=== PATIENT | male | born 1955 | race Caucasian/White ===

== ENCOUNTER 2020-10-19 17:46 | Emergency (ER) | payer OTHER ==
[2020-10-19 18:02] VITALS: TEMP 99.2
[2020-10-19] MEDS ORDERED: SODIUM CHLORIDE 0.9% 1,000 ML IV STA (18:28)
--- NOTE | 2020-10-19 19:02 | ED ---
Nausea/Vomiting/Diarrhea HPI - General Chief complaint: Nausea/Vomiting/Diarrhea Stated complaint: diarrhea, weakness Time Seen by Provider: 10/19/20 18:20 Source: patient Mode of arrival: ambulatory Limitations: no limitations - History of Present Illness Initial comments: 64-year-old male presents to the emergency department with a chief complaint of diarrhea. Patient reports symptoms and I will for approximately 3 weeks. States he was on Keflex, amoxicillin and clindamycin for a skin infection. Patient reports soon after began to experience profuse watery diarrhea which is increasing severity. Patient reports he spoke to his primary care physician who prescribed Flagyl for him. States the diarrhea is not significantly foul- smelling. Patient reports 04 he is taken 2 days worth of Flagyl with no significant permanent symptoms. He denies any hematuria, hematochezia or melena. Denies any obstructive or infectious urinary symptoms. Denies any abdominal back pain. Denies any fevers or chills. - Related Data Home Medications Medication Instructions Recorded Confirmed Famotidine 20 mg PO HS 10/19/20 10/19/20 Pravastatin Sodium [Pravachol] 40 mg PO HS 10/19/20 10/19/20 amLODIPine [Norvasc] 10 mg PO DAILY 10/19/20 10/19/20 lisinopriL 40 mg PO DAILY 10/19/20 10/19/20 metroNIDAZOLE [Flagyl] 500 mg PO TID 10/19/20 10/19/20 Previous Rx's Medication Instructions Recorded Erythromycin Base [Erythromycin] 250 mg PO TID #21 tab 10/19/20 Allergies Allergy/AdvReac Type Severity Reaction Status Date / Time No Known Allergies Allergy Verified 10/19/20 18:45 Review of Systems ROS Statement: Those systems with pertinent positive or pertinent negative responses have been documented in the HPI. ROS Other: All systems not noted in ROS Statement are negative. Past Medical History Past Medical History: Hyperlipidemia, Hypertension History of Any Multi-Drug Resistant Organisms: None Reported Past Surgical History: Hernia Repair, Orthopedic Surgery, Prostate Surgery Additional Past Surgical History / Comment(s): knee surgery Smoking Status: Former smoker Past Alcohol Use History: Occasional Past Drug Use History: None Reported General Exam Limitations: no limitations General appearance: alert, in no apparent distress Head exam: Present: atraumatic, normocephalic, normal inspection Eye exam: Present: normal appearance, PERRL, EOMI Pupils: Present: normal accommodation ENT exam: Present: normal exam, normal oropharynx, mucous membranes moist Neck exam: Present: normal inspection, full ROM. Absent: tenderness, lymphadenopathy Respiratory exam: Present: normal lung sounds bilaterally. Absent: respiratory distress Cardiovascular Exam: Present: regular rate, normal rhythm, normal heart sounds. Absent: systolic murmur GI/Abdominal exam: Present: soft. Absent: distended, tenderness, guarding Extremities exam: Present: normal inspection, full ROM, normal capillary refill. Absent: tenderness, pedal edema Back exam: Present: normal inspection, full ROM. Absent: tenderness, CVA tenderness (R), CVA tenderness (L) Neurological exam: Present: alert, oriented X3 Psychiatric exam: Present: normal affect, normal mood Skin exam: Present: warm, dry, intact, normal color Course Vital Signs 10/19/20 10/19/20 17:55 22:00 Temperature 99.2 F Pulse Rate 89 80 Respiratory 19 18 Rate Blood Pressure 144/71 142/66 O2 Sat by Pulse 98 98 Oximetry Medical Decision Making - Medical Decision Making 64-year-old male presents to the emergency department with a chief complaint of diarrhea. On physical examination, no abdominal tenderness or CVA tenderness. Laboratory work revealed leukocytosis. CMP UA unremarkable. Negative for C. diff. CT abdomen and pelvis reveals colitis versus diverticulitis. I discussed the case with Dr. Stewart recommended stopping the Flagyl and starting the patient on erythromycin. I did offer admission for the patient, he declined. He will follow with Dr. Hui who has previously seen before. Return parameters were thoroughly discussed the patient is understanding and agreeable. - Lab Data Result diagrams: 10/19/20 19:40 10/19/20 19:40 Lab Results 10/19/20 10/19/20 10/19/20 Range/Units 19:24 19:40 19:40 WBC 16.1 H (3.8-10.6) k/uL RBC 5.07 (4.30-5.90) m/uL Hgb 15.8 (13.0-17.5) gm/dL Hct 45.4 (39.0-53.0) % MCV 89.5 (80.0-100.0) fL MCH 31.1 (25.0-35.0) pg MCHC 34.7 (31.0-37.0) g/dL RDW 12.7 (11.5-15.5) % Plt Count 352 (150-450) k/uL MPV 7.1 Neutrophils % 86 % Lymphocytes % 7 % Monocytes % 5 % Eosinophils % 1 % Basophils % 0 % Neutrophils # 13.8 H (1.3-7.7) k/uL Lymphocytes # 1.2 (1.0-4.8) k/uL Monocytes # 0.8 (0-1.0) k/uL Eosinophils # 0.2 (0-0.7) k/uL Basophils # 0.1 (0-0.2) k/uL Sodium (137-145) mmol/L Potassium (3.5-5.1) mmol/L Chloride (98-107) mmol/L Carbon Dioxide (22-30) mmol/L Anion Gap mmol/L BUN (9-20) mg/dL Creatinine (0.66-1.25) mg/dL Est GFR (CKD-EPI)AfAm (>60 ml/min/1.73 sqM) Est GFR (CKD-EPI)NonAf (>60 ml/min/1.73 sqM) Glucose (74-99) mg/dL Plasma Lactic Acid [place] (0.7-2.0) mmol/L Calcium (8.4-10.2) mg/dL Total Bilirubin (0.2-1.3) mg/dL AST (17-59) U/L ALT (4-49) U/L Alkaline Phosphatase (38-126) U/L Total Protein (6.3-8.2) g/dL Albumin (3.5-5.0) g/dL Lipase (23-300) U/L Urine Color Yellow Urine Appearance Clear (Clear) Urine pH 5.5 (5.0-8.0) Ur Specific [place] 1.007 (1.001-1.035) Urine Protein Negative (Negative) Urine Glucose (UA) Negative (Negative) Urine Ketones Negative (Negative) Urine Blood Negative (Negative) Urine Nitrite Negative (Negative) Urine Bilirubin Negative (Negative) Urine Urobilinogen <2.0 (<2.0) mg/dL Ur Leukocyte Esterase Trace H (Negative) Urine WBC 1 (0-5) /hpf Urine Mucus Rare H (None) /hpf C. difficile (EIA) Intrp Negative (Negative) 10/19/20 10/19/20 Range/Units 19:40 19:40 WBC (3.8-10.6) k/uL RBC (4.30-5.90) m/uL Hgb (13.0-17.5) gm/dL Hct (39.0-53.0) % MCV (80.0-100.0) fL MCH (25.0-35.0) pg MCHC (31.0-37.0) g/dL RDW (11.5-15.5) % Plt Count (150-450) k/uL MPV Neutrophils % % Lymphocytes % % Monocytes % % Eosinophils % % Basophils % % Neutrophils # (1.3-7.7) k/uL Lymphocytes # (1.0-4.8) k/uL Monocytes # (0-1.0) k/uL Eosinophils # (0-0.7) k/uL Basophils # (0-0.2) k/uL Sodium 136 L (137-145) mmol/L Potassium 4.7 (3.5-5.1) mmol/L Chloride 101 (98-107) mmol/L Carbon Dioxide 26 (22-30) mmol/L Anion Gap 9 mmol/L BUN 15 (9-20) mg/dL Creatinine 1.06 (0.66-1.25) mg/dL Est GFR (CKD-EPI)AfAm 87 (>60 ml/min/1.73 sqM) Est GFR (CKD-EPI)NonAf 75 (>60 ml/min/1.73 sqM) Glucose 110 H (74-99) mg/dL Plasma Lactic Acid [place] 1.0 (0.7-2.0) mmol/L Calcium 8.9 (8.4-10.2) mg/dL Total Bilirubin 0.5 (0.2-1.3) mg/dL AST 19 (17-59) U/L ALT 11 (4-49) U/L Alkaline Phosphatase 76 (38-126) U/L Total Protein 6.1 L (6.3-8.2) g/dL Albumin 3.5 (3.5-5.0) g/dL Lipase 78 (23-300) U/L Urine Color Urine Appearance (Clear) Urine pH (5.0-8.0) Ur Specific [place] (1.001-1.035) Urine Protein (Negative) Urine Glucose (UA) (Negative) Urine Ketones (Negative) Urine Blood (Negative) Urine Nitrite (Negative) Urine Bilirubin (Negative) Urine Urobilinogen (<2.0) mg/dL Ur Leukocyte Esterase (Negative) Urine WBC (0-5) /hpf Urine Mucus (None) /hpf C. difficile (EIA) Intrp (Negative) Disposition Clinical Impression: Diarrhea Disposition: HOME SELF-CARE Condition: Stable Instructions (If sedation given, give patient instructions): Acute Diarrhea (ED) Additional Instructions: Please return to the Emergency Department if symptoms worsen or any other concerns. Prescriptions: Erythromycin Base [Erythromycin] 250 mg PO TID #21 tab Is patient prescribed a controlled substance at d/c from ED?: No Referrals: Benita Seo MD [Primary Care Provider] - 1-2 days Denise Hui MD [STAFF PHYSICIAN] - 1-2 days Time of Disposition: 21:58
[2020-10-19 20:06] LABS: Basophils # (A) 0.1 k/uL (0-0.2); Basophils % (A) 0 %; Eosinophils # (A) 0.2 k/uL (0-0.7); Eosinophils % (A) 1 %; HCT 45.4 % (39.0-53.0); HGB 15.8 gm/dL (13.0-17.5); Lymphocytes # (A) 1.2 k/uL (1.0-4.8); Lymphocytes % (A) 7 %; MCH 31.1 pg (25.0-35.0); MCHC 34.7 g/dL (31.0-37.0); MCV 89.5 fL (80.0-100.0); Mean Platelet Volume 7.1; Monocytes # (A) 0.8 k/uL (0-1.0); Monocytes % (A) 5 %; Neutrophils # (A) 13.8 k/uL (1.3-7.7); Neutrophils % (A) 86 %; Platelet Count 352 k/uL (150-450); RBC 5.07 m/uL (4.30-5.90); RDW 12.7 % (11.5-15.5); WBC 16.1 k/uL (3.8-10.6)
[2020-10-19 20:07] LABS: Albumin 3.5 g/dL (3.5-5.0); Calcium 8.9 mg/dL (8.4-10.2); Potassium 4.7 mmol/L (3.5-5.1); Total Bilirubin 0.5 mg/dL (0.2-1.3); Total Protein 6.1 g/dL (6.3-8.2)
[2020-10-19 20:10] LABS: Appearance,Urine Clear (Clear); Bilirubin,Urine Negative (Negative); Blood,Urine Negative (Negative); Color,Urine Yellow; Glucose,Urine (UA) Negative (Negative); Ketones,Urine Negative (Negative); Leukocyte Esterase,Urine Trace (Negative); Mucus,Urine Rare /hpf; Nitrite,Urine Negative (Negative); PH, Urine 5.5 (5.0-8.0); Protein,Urine Negative (Negative); Specific Gravity,Urine 1.007 (1.001-1.035); Urobilinogen,Urine <2.0 mg/dL (<2.0); WBC,Urine 1 /hpf (0-5)
--- NOTE | 2020-10-19 21:02 | CT ---
EXAMINATION TYPE: CT abdomen pelvis w con DATE OF EXAM: 10/19/2020 COMPARISON: None available. HISTORY: Diarrhea/weakness x3 weeks. CT DLP: 1130.1 mGycm Automated exposure control for dose reduction was used. TECHNIQUE: Helical acquisition of images was performed from the lung bases through the pelvis. CONTRAST: Performed without Oral Contrast and with IV Contrast, patient injected with 100 mL of Isovue 300. FINDINGS: LUNG BASES: No significant abnormality is appreciated. LIVER/GB: No acute abnormality is appreciated. 8mm low attenuating right hepatic focus without suspic ious features and probably cyst. PANCREAS: No significant abnormality is seen. SPLEEN: No significant abnormality is seen. ADRENALS: No significant abnormality is seen. KIDNEYS: No significant abnormality is seen. FREE AIR: No free air is visualized. RETROPERITONEAL ADENOPATHY: None visualized REPRODUCTIVE ORGANS: No significant abnormality is seen URINARY BLADDER: No significant abnormality is seen. PELVIC ADENOPATHY: None visualized. OSSEOUS STRUCTURES: No acute abnormality is seen. BOWEL: Colonic diverticulosis with questionable minimal fat stranding involving the sigmoid and asce nding colon. No bowel obstruction, free air or fluid. OTHER: None IMPRESSION: COLONIC DIVERTICULOSIS WITH MINIMAL INFLAMMATORY CHANGES INVOLVING THE SIGMOID AND ASCENDING COLON. F INDINGS MAY REPRESENT EARLY/LOW GRADE DIVERTICULITIS VERSUS COLITIS. Probable hepatic cyst.
[2020-10-19 22:01] VITALS: BP 142/66; PULSE 80; RESP 18
== END 2020-10-19 22:06 | disposition home or self-care (01) ==
LOC: EC 17:46
DX: R19.7 Diarrhea, unspecified (principal); R53.1 Weakness; I10 Essential (primary) hypertension; E78.5 Hyperlipidemia, unspecified; Z87.891 Personal history of nicotine dependence; Z79.899 Other long term (current) drug therapy
CPT/HCPCS: 36415; 80053; 83605; 83690; 85025; 81001; 87324; 74177; 99285; 96360; Q9967

== ENCOUNTER 2022-08-04 10:28 | Day surgery (SDC) | payer MEDICARE, OTHER ==
[~2022-08-04 10:28] MED LIST: LACTATED RINGERS 1,000 ML IV SCH
[2022-08-04 11:29] VITALS: RESP 16; TEMP 97.6
[2022-08-04] MEDS ORDERED: LIDOCAINE 1% (10MG/ML) FOR IV START INTRADERMA ONE (11:36)
[2022-08-04] MEDS ORDERED: LIDOCAINE 2% INJ 20 MG/ML (2 ML VIAL) ONE (12:35)
[2022-08-04] MEDS ORDERED: PROPOFOL 10 MG/ML 20 ML VIAL IV ONE (12:35)
--- NOTE | 2022-08-04 12:55 | P.PCN ---
Date of Procedure: 08/04/22 Procedure(s) Performed: BRIEF HISTORY: Patient is a 66-year-old pleasant white male scheduled for an elective colonoscopy as a part of evaluation of prior history of colon polyps. Last colonoscopy was 3 years ago. PROCEDURE PERFORMED: Colonoscopy with snare polypectomy and Endo Clip placement. PREOPERATIVE DIAGNOSIS: History of colon polyps. IV sedation per Anesthesia. PROCEDURE: After informed consent was obtained, the patient, was brought into the endoscopy unit. IV sedation was administered by Anesthesia under continuous monitoring. Digital rectal examination was normal. Initially the Olympus CF-160 flexible video colonoscope was then inserted in the rectum, gradually advanced into the cecum without any difficulty. Careful examination was performed as the scope was gradually being withdrawn. Ileocecal valve and the appendiceal orifice were visualized and appeared normal. Prep was excellent. Mucosa of the cecum, ascending colon, transverse colon, descending colon, sigmoid colon, appeared normal. In the rectosigmoid colon at 20 cm from the anal was there was a 3 cm broad-based polyp that was removed by piecemeal snare polypectomy and complete polypectomy was performed. Following this Endo Clip was placed to prevent post- polypectomy bleed. The rectum appeared normal. Retroflexion was performed in the rectum and no lesions were seen. Scattered sigmoid diverticulosis The patient tolerated the procedure well. IMPRESSION: 3 cm broad-based rectal sigmoid polyp at 20 cm from the anal words status post piecemeal snare polypectomy followed by Endo Clip placement Scattered sigmoid diverticulosis. RECOMMENDATIONS: Findings of this examination were discussed with the patient as well as his family.. He was advised to follow with the biopsy results. If the biopsies adenoma he can have a repeat colonoscopy in 3 years.
[2022-08-04 13:19] VITALS: BP 119/76; PULSE 59
== END 2022-08-04 13:42 | disposition home or self-care (01) ==
LOC: ORWHC2ENDO 10:28
PROVIDERS: ATTEND Internal Medicine Gastroenterology
DX: Z12.11 Encounter for screening for malignant neoplasm of colon (principal); D12.7 Benign neoplasm of rectosigmoid junction; K57.30 Diverticulosis of large intestine without perforation or abscess without bleeding; I10 Essential (primary) hypertension; E78.5 Hyperlipidemia, unspecified; Z79.899 Other long term (current) drug therapy; Z86.010 Personal history of colon polyps
CPT/HCPCS: 88305; 45382; 45385; J2704; J2001

== ENCOUNTER → 2024-01-04 | Outpatient (CLI) | payer OTHER ==
[2024-01-04 11:18] LABS: Basophils % (A) 1 %; Eosinophils # (A) 0.2 k/uL (0-0.7); Eosinophils % (A) 3 %; HCT 46.3 % (39.0-53.0); HGB 16.1 gm/dL (13.0-17.5); Lymphocytes # (A) 1.4 k/uL (1.0-4.8); Lymphocytes % (A) 23 %; MCH 31.6 pg (25.0-35.0); MCHC 34.7 g/dL (31.0-37.0); MCV 91.1 fL (80.0-100.0); Mean Platelet Volume 7.5; Monocytes # (A) 0.3 k/uL (0-1.0); Monocytes % (A) 5 %; Neutrophils % (A) 66 %; Platelet Count 201 k/uL (150-450); RBC 5.08 m/uL (4.30-5.90); RDW 13.1 % (11.5-15.5); WBC 6.1 k/uL (3.8-10.6)
[2024-01-04 11:40] LABS: African American GFR (CKD) 74 (>60 ml/min/1.73 sqM); Anion Gap 8 mmol/L; Blood Urea Nitrogen 16 mg/dL (9-20); Calcium 9.5 mg/dL (8.4-10.2); Carbon Dioxide 25 mmol/L (22-30); Chloride 107 mmol/L (98-107); Glucose 93 mg/dL (74-99); Non-African American GFR(CKD) 64 (>60 ml/min/1.73 sqM); Potassium 4.5 mmol/L (3.5-5.1); Sodium 140 mmol/L (137-145)
[2024-01-04 11:50] LABS: Prothrombin Time 10.8 sec (10.0-12.5)
== END | disposition home or self-care (01) ==
LOC: PAT 10:02
PROVIDERS: ATTEND Orthopaedic Surgery
DX: Z01.818 Encounter for other preprocedural examination (principal); Z22.322 Carrier or suspected carrier of Methicillin resistant Staphylococcus aureus; M17.12 Unilateral primary osteoarthritis, left knee
CPT/HCPCS: 80048; 85025; 85610; 87070; 93005

== ENCOUNTER 2024-01-17 08:10 | Day surgery (SDC) | payer OTHER ==
--- NOTE | 2024-01-16 23:21 | HP ---
HISTORY AND PHYSICAL SURGERY DATE: January 17, 2024. HISTORY OF PRESENT ILLNESS: Devang Szymanski, 68-year-old gentleman, seen with symptomatic left knee osteoarthritis. We discussed options regarding treatment. He elected to proceed with left total knee arthroplasty. Consent regarding procedure obtained. PAST MEDICAL HISTORY: Hypertension and hyperlipidemia. SURGICAL HISTORY: Knee arthroscopy. DAILY MEDICATIONS: 1. Lisinopril. 2. Amlodipine. 3. Rosuvastatin. 4. Tylenol. 5. Aspirin. ALLERGIES: None. SOCIAL HISTORY: Denies tobacco use. PHYSICAL EVALUATION OF THE LEFT KNEE: His range of motion is 0 to 120 degrees. He has a mild effusion. Tenderness, medial joint line. Crepitus, medial patellofemoral compartment with some range of motion. Pain with patellofemoral compression. Ligaments stable. Hip rotation is without pain. His distal neurovascular exam is intact. IMAGING STUDIES: Radiographs of the left knee reveal severe osteoarthritic changes. IMPRESSION: 1. Left knee osteoarthritis. 2. Hypertension. 3. Hyperlipidemia. PLAN: Left total knee arthroplasty. MMEDMONDL / IJN: [id number] /
[~2024-01-17 08:10] MED LIST changes: +LIDOCAINE 1% (10MG/ML) FOR IV START INTRADERMA PRN; +TRANEXAMIC 1,000 MG/100ML-NACL 1,000 MG in SALINE 1 100ML.BAG IVPB PRN; +fentaNYL (PF) 50 MCG/ML 2 ML AMP IVP PRN
[2024-01-17] MEDS: ACETAMINOPHEN TAB 500 MG TAB PO PRN (08:51)
[2024-01-17] MEDS: MELOXICAM 7.5 MG TAB PO PRN (08:52)
[2024-01-17] MEDS: DEXAMETHASONE SOD PHOSPHATE 4 MG/ML 1 ML VIAL IV ONE (09:06)
[2024-01-17] MEDS: ONDANSETRON 4 MG/2 ML VIAL IVP ONE (09:06)
[2024-01-17] MEDS: IV FLUID CONTINUATION 1,000 ML IV ONE ×2 (09:07→14:55)
[2024-01-17] MEDS: MIDAZOLAM 2 MG/2 ML VIAL IV PRN (09:35)
[2024-01-17] MEDS ORDERED: MIDAZOLAM 2 MG/2 ML VIAL ONE (10:08)
[2024-01-17] MEDS ORDERED: TRANEXAMIC 1,000 MG/100ML-NACL PREMIX BAG ONE (10:08)
[2024-01-17] MEDS ORDERED: GLYCOPYRROLATE 0.2 MG/ML 2 ML VIAL ONE (10:08)
[2024-01-17] MEDS ORDERED: PROPOFOL 10 MG/ML 20 ML VIAL IV ONE (10:08)
[2024-01-17] MEDS ORDERED: ROPIVACAINE 5 MG/ML 30 ML VIAL ONE (10:08)
[2024-01-17] MEDS ORDERED: DEXAMETHASONE SOD PHOSPHATE 4 MG/ML 1 ML VIAL ONE (10:08)
[2024-01-17] MEDS ORDERED: NEOSTIGMINE 1 MG/ML 10 ML VIAL ONE (10:08)
[2024-01-17] MEDS ORDERED: fentaNYL (PF) 50 MCG/ML 2 ML AMP ONE (10:08)
[2024-01-17] MEDS ORDERED: ROCURONIUM 10 MG/ML (5 ML VIAL) IV ONE (10:08)
[2024-01-17] MEDS ORDERED: SUCCINYLCHOLINE CHLORIDE 200 MG/10 ML VIAL IV ONE (10:08)
[2024-01-17] MEDS ORDERED: LIDOCAINE 1% INJ 10MG/ML (20 ML MDV) ONE (10:08)
[2024-01-17] MEDS ORDERED: KETAMINE HCL IN 0.9 % NACL 50 MG/5 ML SYRINGE ONE (10:08)
[2024-01-17] MEDS ORDERED: HYDROmorphone (PF) 1 MG/ML ONE (10:08)
[2024-01-17] MEDS: ceFAZolin 1,000 MG in SODIUM CHLORIDE 0.9% 1,000 ML IRRIGATION ONE (10:30)
[2024-01-17] MEDS: LACTATED RINGERS 1,000 ML IV ONE (10:43)
[2024-01-17] MEDS ORDERED: ONDANSETRON 4 MG/2 ML VIAL IVP PRN (12:05)
[2024-01-17] MEDS ORDERED: HYDROmorphone 0.5 MG/0.5 ML SYRINGE IVP PRN ×3 (12:05)
[2024-01-17] MEDS ORDERED: NALOXONE 0.4 MG/ML 1 ML VIAL IV PRN (12:05)
[2024-01-17] MEDS ORDERED: HYDROcodone/APAP 5-325MG 1 EACH TAB PO PRN ×2 (12:05)
[2024-01-17] MEDS ORDERED: LACTATED RINGERS 1,000 ML IV ONE (12:05)
--- NOTE | 2024-01-17 12:05 | P.OP ---
Date of Procedure: 01/17/24 Preoperative Diagnosis: Left knee osteoarthritis Postoperative Diagnosis: Left knee osteoarthritis Procedure(s) Performed: Left total knee arthroplasty Implants: 1. DePuy attune size 8 left cruciate retaining cemented femur 2. DePuy attune size 7 fixed-bearing cemented tibial baseplate 3. DePuy attune size 8 fixed-bearing cruciate retaining 5 mm polyethylene tibial insert 4. DePuy attune 38 mm all polyethylene cemented patella Anesthesia: GETA, regional (Interscalene block) Surgeon: Donald Earl Facility Attendant #1: Sameer Corea Estimated Blood Loss (ml): 35 Pathology: none sent Condition: stable Disposition: PACU Indications for Procedure: 68-year-old patient seen with symptomatic left knee osteoarthritis. After having treatment options discussed, he elected to proceed with left total knee arthroplasty. Operative Findings: See description of procedure Description of Procedure: Patient was taken to the operative suite after having an adductor canal catheter placed by the department of anesthesia. Patient underwent a general anesthetic by the department of anesthesia. Patient was given preoperative IV intake antibiotics and TXA. A well-padded tourniquet was placed about the left lower extremity. The lower extremity was then prepped and draped in the normal sterile orthopedic fashion. The extremity was elevated, a tourniquet was insufflated to 300. A standard anterior incision was made sharply through skin. Dissection was taken down through the subcutaneous soft tissues down to the extensor mechanism. A medial arthrotomy was performed, patella was everted and knee was flexed. There was advanced osteoarthritis noted. I introduced my distal intramedullary femoral drill. I then introduced the distal femoral cutting jig. Eloy STEIN secured the cutting jig with 2 pins. I held retractors in position while Eloy STEIN performed the distal femoral resection through the guide area we now removed her distal femoral cutting guid e. We now placed our 4-in-1 femoral cutting block and positioned and it was secured with 2 pins by Eloy STEIN while I held the block in position. The distal femoral finishing was now completed. A proximal tibial cutting guide was positioned. I held the guide in the appropriate position with both hands well Eloy STEIN inserted stabilizing pins into the guide. Proximal tibial cut was made. We now placed a trial femoral component into position, along with an appropriate size tibial tray and insert. We now took the knee through range of motion and had full extension good flexion and good overall soft tissue balance noted. The patella was everted and stabilized with 2 towel clips held by Eloy STEIN while I performed a flush with patellar quad tendon utilizing a fresh sawblade. We templated the patella, appropriate drill holes were made. An appropriate trial patella was positioned, knee was taken through full range of motion with the patella tracking very nicely. The trial patella was removed. Drill holes were made through the femoral component. All trial components were removed after marking off the appropriate rotation of the tibia. Retractors were now positioned along the proximal tibia. An appropriate keel punch was made with the appropriate size tibial guide by myself on Eloy STEIN assisted by holding retractors. At this point appropriate size implants were chosen and opened. The joint was irrigated copiously with pulse lavage mechanical irrigation. The wound was irrigated with pulse lavage mechanical irrigation. We mixed antibiotic methylmethacrylate. We placed the knee into flexion. We placed multiple retractors assisted by Eloy STEIN to expose the proximal tibia. Once the methyl methacrylate was ready, the tibial component was c emented into place removing any excess methylmethacrylate form by both myself and Eloy STEIN. The femoral component was cemented into place removing the removing any excess methylmethacrylate performed by both myself and Eloy STEIN. We then inserted the appropriate size polyethylene tibial insert. We made sure that it was locked into position. We took the knee into full extension, and then back in a flexion making sure we had removed any excess methylmethacrylate. The patellar component was then cemented down and secured with clamp. Excess methylmethacrylate removed. We kept the knee in full extension, patellar clamp in position until methylmethacrylate had hardened. Once it had hardened the patellar clamp was removed. The knee was taken through full range of motion. The patella tracked nicely. There was good soft tissue balancing. The tourniquet was now released. Additional hemostasis was achieved via electrocautery. A second gram of TXA was given. The wound again was irrigated with pulse lavage mechanical irrigation. The extensor mechanism was repaired with Ethibond suture. We checked the repair with range of motion and it was stable. The subcutaneous soft tissues were repaired with Vicryl in layers. The skin was approximated with pernio/Dermabond. Sterile dressings were applied followed by loose web roll and Frank bandage. The patient was transferred to a bed, and taken to recovery in stable and satisfactory condition. Eloy STEIN assisted with this complex procedure.
[2024-01-17 12:23] VITALS: TEMP 97
[2024-01-17] MEDS: HYDROmorphone 0.5 MG/0.5 ML SYRINGE IVP PRN (12:26)
[2024-01-17] MEDS: ROPIVACAINE 1,100 MG, SODIUM CHLORIDE 0.9% 500 ML 330 ML, EMPTY PAIN BALL 1 EACH MISCELLANE PRN (12:37)
--- NOTE | 2024-01-17 12:56 | P.ANPRN ---
Procedure Note - Anesthesia - Nerve Block Performed Left Adductor Canal Infusion Time Out Performed: Yes Date of Procedure: 01/17/24 Procedure Start Time: :35 Procedure Stop Time: :45 Location of Patient: PreOp Indication: Acute Post-Operative Pain, Requested by Surgeon Sedation Type: Sedate with meaningful contact maintained Preparation: Sterile Prep, Sterile Dressing Position: Supine Catheter: Indwelling Needle Types: Pajunk Needle Gauge: 21 Ultrasound used to visualize needle placement: Yes Ultrasound used to observe medication spread: Yes Blood Aspirated: No Pain Paresthesia on Injection Noted: No Resistance on Injection: Normal Image Stored and Saved: Yes Events: Uneventful and Well Tolerated (Ropivacaine 0.5% 20 cc plus dexamethasone 4 mg)
--- NOTE | 2024-01-17 12:57 | P.ANPRN ---
Procedure Note - Anesthesia - Nerve Block Performed Left iPack Single Time Out Performed: Yes Date of Procedure: 01/17/24 Procedure Start Time: :46 Procedure Stop Time: :48 Location of Patient: PreOp Indication: Acute Post-Operative Pain, Requested by Surgeon Sedation Type: Sedate with meaningful contact maintained Preparation: Sterile Prep Position: Supine Needle Types: Pajunk Needle Gauge: 21 Ultrasound used to visualize needle placement: Yes Ultrasound used to observe medication spread: Yes Blood Aspirated: No Pain Paresthesia on Injection Noted: No Resistance on Injection: Normal Image Stored and Saved: Yes Events: Uneventful and Well Tolerated (Ropivacaine 0.5% 20 cc dexamethasone 4 mg)
[2024-01-17] MEDS: HYDROcodone/APAP 7.5-325MG 1 EACH TAB PO ONE (13:40)
--- NOTE | 2024-01-17 14:21 | XR ---
EXAMINATION TYPE: XR knee limited LT DATE OF EXAM: 01/17/2024 2:04 PM COMPARISON: None CLINICAL INDICATION: Male, 68 years old with history of Evaluation for Postop abnormality and alignme nt; [facility] TECHNIQUE: XR knee limited LT 2 views submitted. FINDINGS: Status post total knee arthroplasty changes with hardware in appropriate alignment and in tact. No evidence of fracture. Subcutaneous lucencies and lucencies within the joint consistent with surgical changes. IMPRESSION: Status post total knee arthroplasty changes with hardware intact and appropriate alignment. No fractu res identified. [facility], , 01/17/2024 2:19 PM
[2024-01-17 14:30] VITALS: RESP 14
[2024-01-17 15:15] VITALS: BP 155/73; PULSE 99
== END 2024-01-17 15:50 | disposition home health service (06) ==
LOC: OR 08:10
PROVIDERS: ATTEND Orthopaedic Surgery
DX: M17.12 Unilateral primary osteoarthritis, left knee (principal); G89.18 Other acute postprocedural pain; E78.5 Hyperlipidemia, unspecified; I10 Essential (primary) hypertension; I25.10 Atherosclerotic heart disease of native coronary artery without angina pectoris; G47.33 Obstructive sleep apnea (adult) (pediatric); Z79.82 Long term (current) use of aspirin; Z79.899 Other long term (current) drug therapy
CPT/HCPCS: 97530; 97161; 64999; 64448; 73560; 27447; C1776; C1713 ×2; C1751; J2250; J0330; J1100; J2710; J0690 ×2; J2405; J2003; J3010; J1171 ×2; J2795; J2704; J1596